=== PATIENT | female | born 1970 | race Hispanic/Latino ===

== ENCOUNTER 2017-09-21 09:01 | Emergency (ER) | payer OTHER | END 2017-09-21 09:53 | disposition home or self-care (01) | LOC: EDH 09:01 | DX: J06.9 Acute upper respiratory infection, unspecified (principal); E11.9 Type 2 diabetes mellitus without complications; E78.5 Hyperlipidemia, unspecified; I10 Essential (primary) hypertension; K21.9 Gastro-esophageal reflux disease without esophagitis | CPT/HCPCS: 99281 ==

== ENCOUNTER 2018-05-22 11:30 | Emergency (ER) | payer OTHER ==
[2018-05-22 12:02] LABS: BASOPHILS % (AUTO) 0.8 % (0.0-5.0); EOSINOPHILS % (AUTO) 0.7 % (0.0-8.0); HEMATOCRIT 37.4 % (36-48); LYMPHOCYTES % (AUTO) 19.2 % (21.0-51.0); MEAN CORPUSCULAR HEMOGLOBIN 29.3 pg (27.0-33.0); MEAN CORPUSCULAR HGB CONC 33.5 g/dL (32.0-36.0); MEAN CORPUSCULAR VOLUME 87.4 fL (79-99); MONOCYTES % (AUTO) 4.3 % (3.0-13.0); NUCLEATED RED BLOOD CELLS 0.1 % (0.0-0.19); PLATELET COUNT (AUTO) 132 K/uL (130-400); RED BLOOD CELL COUNT(AUTO) 4.28 MIL/uL (4.00-5.50); WHITE BLOOD COUNT (AUTO) 8.6 K/uL (4.8-10.8)
[2018-05-22 12:07] LABS: CREATININE 0.7 mg/dL (0.5-1.5); POTASSIUM 3.9 mmol/L (3.5-5.1)
[2018-05-22 12:11] LABS: BILIRUBIN,TOTAL 0.4 mg/dL (0.2-1.0); TOTAL PROTEIN, SERUM 7.7 g/dL (6.0-8.3)
[2018-05-22 12:14] LABS: INR 0.96 (0.85-1.15); PARTIAL THROMBOPLASTIN TIME 29.6 SEC (26.3-35.5); PROTHROMBIN TIME 10.1 SEC (9.6-11.6)
[2018-05-22] MEDS ORDERED: IOHEXOL 350 MG/ML 100ML INFUS..BTL IV ONE (13:23)
== END 2018-05-22 15:00 | disposition home or self-care (01) ==
LOC: EDH 11:30
DX: F41.9 Anxiety disorder, unspecified (principal); R06.4 Hyperventilation; M19.90 Unspecified osteoarthritis, unspecified site; E78.5 Hyperlipidemia, unspecified; I10 Essential (primary) hypertension; E11.9 Type 2 diabetes mellitus without complications; Z90.49 Acquired absence of other specified parts of digestive tract; Z79.899 Other long term (current) drug therapy
CPT/HCPCS: 36415; 71045; 71275; 80053; 82550; 83880; 84484; 85025; 85378; 85610; 85730; 93005; 99285; Q9967

== ENCOUNTER 2018-08-13 15:13 | Emergency (ER) | payer OTHER ==
[2018-08-13 16:00] LABS: APPEARANCE,URINE Clear (CLEAR); BILIRUBIN,URINE Negative (NEGATIVE); COLOR,URINE Dark Yellow (YELLOW); GLUCOSE, URINE (UA) Negative (NEGATIVE); KETONES,URINE Negative (NEGATIVE); LEUKOCYTE ESTERASE ,URINE Negative (NEGATIVE); NITRATE,URINE Negative (NEGATIVE); OCCULT BLOOD,URINE Negative (NEGATIVE); PH,URINE 5.5 (5.0-8.0); PROTEIN,URINE Negative (NEGATIVE); UROBILINOGEN,URINE 0.2 mg/dL (0.2-1.0)
[2018-08-13 16:02] LABS: HCG,QUAL RESULT NEGATIVE (NEGATIVE)
[2018-08-13] MEDS ORDERED: KETOROLAC TROMETHAMINE 30MG/ML ONE (16:06)
[2018-08-13] MEDS ORDERED: SODIUM CHLORIDE 0.9% 1000ML 1,000 ML IV ONE (16:06)
[2018-08-13 16:17] LABS: BASOPHILS % (AUTO) 1.2 % (0.0-5.0); EOSINOPHILS % (AUTO) 0.6 % (0.0-8.0); HEMATOCRIT 39.8 % (36-48); LYMPHOCYTES % (AUTO) 22.6 % (21.0-51.0); MEAN CORPUSCULAR HEMOGLOBIN 28.8 pg (27.0-33.0); MEAN CORPUSCULAR HGB CONC 33.2 g/dL (32.0-36.0); MEAN CORPUSCULAR VOLUME 86.7 fL (79-99); MONOCYTES % (AUTO) 3.9 % (3.0-13.0); NEUTROPHILS % (AUTO) 71.7 % (40.0-77.0); PLATELET COUNT (AUTO) 173 K/uL (130-400); RED BLOOD CELL COUNT(AUTO) 4.59 MIL/uL (4.00-5.50); RED CELL DISTRIBUTION WIDTH 15.2 % (11.0-15.5); WHITE BLOOD COUNT (AUTO) 10.3 K/uL (4.8-10.8)
[2018-08-13 16:27] LABS: CREATININE 0.8 mg/dL (0.5-1.5); POTASSIUM 4.3 mmol/L (3.5-5.1)
[2018-08-13 16:31] LABS: ALBUMIN 3.3 g/dL (3.5-5.0); BILIRUBIN,TOTAL 0.4 mg/dL (0.2-1.0); TOTAL PROTEIN, SERUM 7.8 g/dL (6.0-8.3)
[2018-08-13] MEDS ORDERED: MORPHINE SULFATE 4 MG/1ML SYG ONE (19:07)
[2018-08-13] MEDS ORDERED: ONDANSETRON HCL 4 MG/2 ML VIAL ONE (19:07)
== END 2018-08-13 20:47 | disposition home or self-care (01) ==
LOC: EDH 15:13
DX: N83.209 Unspecified ovarian cyst, unspecified side (principal); R10.2 Pelvic and perineal pain; E11.9 Type 2 diabetes mellitus without complications; K21.9 Gastro-esophageal reflux disease without esophagitis; E78.5 Hyperlipidemia, unspecified; I10 Essential (primary) hypertension
CPT/HCPCS: 36415; 74177; 76856; 80053; 81003; 81025; 85025; 96374; 96375; 99284; J1885; J2270; J2405; J7030

== ENCOUNTER 2019-03-02 13:28 | Emergency (ER) | payer OTHER ==
[2019-03-02 14:14] LABS: BASOPHILS % (AUTO) 0.7 % (0.0-5.0); HEMATOCRIT 35.9 % (36-48); LYMPHOCYTES % (AUTO) 25.1 % (21.0-51.0); MEAN CORPUSCULAR HEMOGLOBIN 28.9 pg (27.0-33.0); MEAN CORPUSCULAR HGB CONC 33.4 g/dL (32.0-36.0); MEAN CORPUSCULAR VOLUME 86.5 fL (79-99); MONOCYTES % (AUTO) 4.8 % (3.0-13.0); NEUTROPHILS % (AUTO) 68.4 % (40.0-77.0); PLATELET COUNT (AUTO) 121 K/uL (130-400); RED BLOOD CELL COUNT(AUTO) 4.15 MIL/uL (4.00-5.50); RED CELL DISTRIBUTION WIDTH 15.1 % (11.0-15.5); WHITE BLOOD COUNT (AUTO) 8.3 K/uL (4.8-10.8)
[2019-03-02 14:25] LABS: APPEARANCE,URINE Clear (CLEAR); BILIRUBIN,URINE Negative (NEGATIVE); COLOR,URINE Dark Yellow (YELLOW); GLUCOSE, URINE (UA) Negative (NEGATIVE); KETONES,URINE Negative (NEGATIVE); LEUKOCYTE ESTERASE ,URINE Negative (NEGATIVE); NITRATE,URINE Negative (NEGATIVE); OCCULT BLOOD,URINE Negative (NEGATIVE); PH,URINE 5.5 (5.0-8.0); PROTEIN,URINE Negative (NEGATIVE); UROBILINOGEN,URINE 0.2 mg/dL (0.2-1.0)
[2019-03-02 14:29] LABS: CREATININE 0.8 mg/dL (0.5-1.5); POTASSIUM 3.8 mmol/L (3.5-5.1)
[2019-03-02 14:35] LABS: ALBUMIN 3.3 g/dL (3.5-5.0); BILIRUBIN,DIRECT 0.1 mg/dL (0.0-0.3); BILIRUBIN,TOTAL 0.4 mg/dL (0.2-1.0); TOTAL PROTEIN, SERUM 7.5 g/dL (6.0-8.3)
[2019-03-02] MEDS ORDERED: KETOROLAC TROMETHAMINE 60 MG/2 ML VIAL ONE (15:23)
[2019-03-02] MEDS ORDERED: SODIUM CHLORIDE 0.9% 1000ML 1,000 ML IV ONE (16:09)
== END 2019-03-02 18:20 | disposition home or self-care (01) ==
LOC: EDH 13:28
DX: M54.41 Lumbago with sciatica, right side (principal); R10.31 Right lower quadrant pain; E66.3 Overweight; E11.9 Type 2 diabetes mellitus without complications; E78.5 Hyperlipidemia, unspecified; I10 Essential (primary) hypertension; K21.9 Gastro-esophageal reflux disease without esophagitis; Z68.44 Body mass index [BMI] 60.0-69.9, adult; Z90.49 Acquired absence of other specified parts of digestive tract; Z91.040 Latex allergy status
CPT/HCPCS: 36415; 74021; 76770; 76856; 80048; 80076; 81003; 82550; 83690; 84484; 85025; 93005; 96374; 99285; J1885; J7030

== ENCOUNTER 2020-08-27 19:25 | Observation (INO) | payer OTHER ==
[~2020-08-27] VITALS: Ht 165.1 cm; Wt 127.5 kg
[2020-08-27 20:03] LABS: BASOPHILS % (AUTO) 0.3 % (0.0-5.0); EOSINOPHILS % (AUTO) 0.3 % (0.0-8.0); HEMATOCRIT 40.1 % (36-48); LYMPHOCYTES % (AUTO) 17.7 % (21.0-51.0); MEAN CORPUSCULAR HEMOGLOBIN 29.8 pg (27.0-33.0); MEAN CORPUSCULAR HGB CONC 32.9 g/dL (32.0-36.0); MEAN CORPUSCULAR VOLUME 90.5 fL (79-99); MONOCYTES % (AUTO) 4.1 % (3.0-13.0); NEUTROPHILS % (AUTO) 77.3 % (40.0-77.0); PLATELET COUNT (AUTO) 115 K/uL (130-400); RED BLOOD CELL COUNT(AUTO) 4.43 MIL/uL (4.00-5.50); RED CELL DISTRIBUTION WIDTH 13.7 % (11.0-15.5); WHITE BLOOD COUNT (AUTO) 6.8 K/uL (4.8-10.8)
[2020-08-27] MEDS ORDERED: ASPIRIN 325 MG TABLET ONE (20:05)
[2020-08-27] MEDS ORDERED: NITROGLYCERIN 1GM/1 INCH PACKET TD ONE (20:05)
[2020-08-27] MEDS ORDERED: LORAZEPAM 1 MG TABLET ONE (20:05)
[2020-08-27 20:10] LABS: CREATININE 0.7 mg/dL (0.5-1.5); POTASSIUM 3.6 mmol/L (3.5-5.1)
[2020-08-27 20:15] LABS: ALBUMIN 3.6 g/dL (3.5-5.0); BILIRUBIN,TOTAL 0.3 mg/dL (0.2-1.0); TOTAL PROTEIN, SERUM 7.1 g/dL (6.0-8.3)
[2020-08-27 21:10] LABS: APPEARANCE,URINE Clear (CLEAR); BILIRUBIN,URINE Negative (NEGATIVE); COLOR,URINE Yellow (YELLOW); GLUCOSE, URINE (UA) Negative (NEGATIVE); KETONES,URINE Negative (NEGATIVE); LEUKOCYTE ESTERASE ,URINE Negative (NEGATIVE); NITRATE,URINE Negative (NEGATIVE); OCCULT BLOOD,URINE Moderate (NEGATIVE); PROTEIN,URINE Negative (NEGATIVE); UROBILINOGEN,URINE 0.2 mg/dL (0.2-1.0)
[2020-08-27 21:17] LABS: BACTERIA,URINE Rare /HPF (None Seen); WBC,URINE 0-1 /HPF (0-1)
[2020-08-27 21:18] LABS: SQUAMOUS EPITHELIAL CELL,UR Rare /HPF (0-2)
[2020-08-27] MEDS ORDERED: GLUCAGON 1MG KIT 1 MG ML IM PRN (21:30)
[2020-08-27] MEDS ORDERED: ONDANSETRON HCL 4 MG/2 ML VIAL IV PRN (21:30)
[2020-08-27] MEDS ORDERED: LACTULOSE 20 GM/30 ML UDCUP PO PRN (21:30)
[2020-08-27] MEDS ORDERED: DEXTROSE 50%-WATER 50 ML DISP.SYRIN IV PRN (21:30)
[2020-08-27] MEDS ORDERED: MECLIZINE HCL 25 MG TABLET PO PRN (21:30)
[2020-08-27] MEDS ORDERED: ACETAMINOPHEN 325 MG TAB PO PRN (21:30)
[2020-08-27 21:42] LABS: HEMOGLOBIN A1C 5.3 % (4.0-6.0)
[2020-08-27 21:50] LABS: THYROID STIMULATING HORMONE 0.95 uIU/mL (0.36-3.74)
[2020-08-28 03:55] VITALS: BP 148/77
[2020-08-28] MEDS ORDERED: FISH1CAP63 PO (04:37)
[2020-08-28] MEDS ORDERED: PREN1TAB80 PO (04:37)
[2020-08-28] MEDS ORDERED: [UNRECOGNIZED DRUG - CODE] PO (04:37)
[2020-08-28] MEDS ORDERED: OMEP20TA25 PO (04:37)
[2020-08-28] MEDS ORDERED: ZINC50TA64 PO (04:37)
[2020-08-28] MEDS ORDERED: GABA-533 PO (04:37)
[2020-08-28] MEDS ORDERED: LISI1TAB32 PO (04:37)
[2020-08-28] MEDS ORDERED: ISOS30TA6 PO (04:38)
[2020-08-28] MEDS ORDERED: FERR325T22 PO (04:38)
[2020-08-28] MEDS ORDERED: ASCO100031 PO (04:38)
[2020-08-28] MEDS ORDERED: ALPR0.5T8 PO (04:38)
[2020-08-28] MEDS ORDERED: VITA1CAP20 PO (04:38)
[2020-08-28] MEDS ORDERED: VITAD50000 PO (04:38)
[2020-08-28] MEDS ORDERED: FURO20TA4 PO (04:38)
[2020-08-28] MEDS ORDERED: MONT10TA21 PO (04:38)
[2020-08-28] MEDS ORDERED: FLUT16H NASAL (04:38)
[2020-08-28] MEDS ORDERED: DICL2100G TP (04:38)
[2020-08-28] MEDS ORDERED: PRAV80TA21 PO (04:38)
[2020-08-28] MEDS ORDERED: FEXO-59 PO (04:38)
[2020-08-28] MEDS: ACETAMINOPHEN 325 MG TAB PO PRN ×2 (04:42→13:09)
[2020-08-28] MEDS: INSULIN HUMULIN R 100 UNIT/ML 3ML SQ SCH ×3 (05:16→16:30)
[2020-08-28 05:21] LABS: BASOPHILS % (AUTO) 0.5 % (0.0-5.0); EOSINOPHILS % (AUTO) 0.6 % (0.0-8.0); LYMPHOCYTES % (AUTO) 37.1 % (21.0-51.0); MEAN CORPUSCULAR HEMOGLOBIN 29.6 pg (27.0-33.0); MEAN CORPUSCULAR HGB CONC 32.7 g/dL (32.0-36.0); MEAN CORPUSCULAR VOLUME 90.7 fL (79-99); MONOCYTES % (AUTO) 5.2 % (3.0-13.0); NEUTROPHILS % (AUTO) 56.4 % (40.0-77.0); PLATELET COUNT (AUTO) 118 K/uL (130-400); RED BLOOD CELL COUNT(AUTO) 4.52 MIL/uL (4.00-5.50); RED CELL DISTRIBUTION WIDTH 14.1 % (11.0-15.5); WHITE BLOOD COUNT (AUTO) 6.6 K/uL (4.8-10.8)
[2020-08-28 05:40] LABS: CREATININE 0.6 mg/dL (0.5-1.5); POTASSIUM 3.6 mmol/L (3.5-5.1)
[2020-08-28 08:17] VITALS: BP 123/62
[2020-08-28] MEDS ORDERED: METOPROLOL TARTRATE 25 MG TAB PO SCH (09:00)
[2020-08-28] MEDS ORDERED: ASPIRIN 325 MG TABLET PO SCH (09:00)
[2020-08-28] MEDS ORDERED: FAMOTIDINE 20MG TAB 20 MG TAB PO SCH (09:00)
[2020-08-28] MEDS ORDERED: ISOSORBIDE MONO 30MG TAB SR PO SCH (11:31)
[2020-08-28] MEDS ORDERED: GABAPENTIN 300 MG CAPSULE PO SCH (11:32)
[2020-08-28] MEDS ORDERED: HYDROCHLOROTHIAZIDE PO SCH (11:37)
[2020-08-28] MEDS ORDERED: LISINOPRIL PO SCH (11:37)
[2020-08-28 11:44] VITALS: BP 123/60
[2020-08-28 16:32] VITALS: BP 100/59
[2020-08-28] MEDS ORDERED: PANTOPRAZOLE SODIUM 40 MG TABLET.DR PO SCH (21:00)
[2020-08-28] MEDS ORDERED: ATORVASTATIN CALCIUM 20 MG TABLET PO SCH (21:00)
[2020-08-28] MEDS ORDERED: GABAPENTIN 100 MG CAPSULE PO SCH (21:00)
== END 2020-08-28 18:50 | disposition home or self-care (01) ==
LOC: EDH 19:25 → EDHIP 21:20 → 3DH 08-28 03:08
PROVIDERS: ADMIT Internal Medicine; ATTEND Internal Medicine
DX: R07.89 Other chest pain (principal); I10 Essential (primary) hypertension; E78.5 Hyperlipidemia, unspecified; E11.9 Type 2 diabetes mellitus without complications; I25.2 Old myocardial infarction; K21.9 Gastro-esophageal reflux disease without esophagitis; F41.9 Anxiety disorder, unspecified; E66.9 Obesity, unspecified; Z90.49 Acquired absence of other specified parts of digestive tract; Z79.899 Other long term (current) drug therapy; Z91.040 Latex allergy status; Z91.048 Other nonmedicinal substance allergy status; Z68.42 Body mass index [BMI] 45.0-49.9, adult
CPT/HCPCS: 36415 ×2; 71045; 80048; 80053; 80061; 81001; 82948 ×3; 83036; 84443; 84484 ×3; 85025 ×2; 93005 ×3; 99285; G0378 ×22

== ENCOUNTER 2024-11-15 17:56 | Emergency (ER) | payer BC, OTHER ==
[~2024-11-15] VITALS: Ht 165.1 cm; Wt 167.8 kg
[~2024-11-15 17:56] MED LIST: ALPR0.5T8 PO; ASCO100031 PO; DICL2100G TP; FERR325T22 PO; FEXO-263 PO; FISH1CAP63 PO; FLUT16H NASAL; FURO20TA4 PO; GABA-534 PO; ISOS30TA92 PO; LISI1TAB49 PO; MONT-47 PO; OMEP20TA20 PO; PRAV80TA21 PO; PREN1TAB80 PO; VITA1CAP20 PO; VITAD50000 PO; ZINC50TA64 PO; [UNRECOGNIZED DRUG - CODE] PO
--- NOTE | 2024-11-15 18:33 | ERN ---
General Chief Complaint: Other Problems Stated Complaint: CP, SOB Time Seen by MD: 18:03 Source: patient History of Present Illness Initial Comments PATIENT IS A 54-YEAR-OLD FEMALE COMING IN TO BE EVALUATED FOR SHORTNESS OF BREATH AND CHEST PAIN. PATIENT STATES HE HAS A HISTORY OF TX IN THE PAST IN HIS COMING IN DUE TO CHEST PRESSURE. SHE STATES THAT THE BEGAN TWO DAYS AGO AND IT WAS PROGRESSIVELY GETTING WORSE. NO FEVER OR CHILLS. Allergies: Coded Allergies: Latex, Natural Rubber (Unverified Allergy, Unknown, 03/02/19) Home Meds Reported Medications Diclofenac Sodium (Voltaren 1% Gel [2 gm/Dose]) 1 Appl/2 Gm Gel, 1 APPL TP BID PRN for PAIN LEVEL 5 TO 10, GEL 08/28/20 Fluticasone Propionate (Flonase Nasal [place]) 50 Mcg/[place], 50 MCG NASAL HS, SPRAY 08/28/20 Furosemide (Furosemide) 20 Mg Tablet, 20 MG PO DAILY PRN for OTHER [SEE ORDER COMMENTS], TAB 08/28/20 Alprazolam (Alprazolam) 0.5 Mg Tablet, 0.5 MG PO HS PRN for ANXIETY/AGITATION, TAB 08/28/20 Cholecalciferol (Vitamin D3) 50,000 Units Cap, 97686 UNITS PO QWEEK, CAP 08/28/20 Fexofenadine HCl (Fexofenadine HCl) 180 Mg Tablet, 180 MG PO HS, TAB 20 Montelukast Sodium (Singulair) 10 Mg Tablet, 10 MG PO HS, TAB 08/28/20 Pravastatin Sodium (Pravastatin Sodium) 80 Mg Tablet, 80 MG PO HS, TAB 20 Vitamin B Complex (Super B-50 Complex) 1 Each Capsule, 1 EACH PO DAILY, CAP 08/28/20 Isosorbide Mononitrate (Isosorbide Mononitrate ER) 30 Mg Tab.er.24h, 30 MG PO DAILY, TAB 08/28/20 Ascorbic Acid (Vitamin C) 1,000 Mg Tablet, 1000 MG PO DAILY, TAB 20 Ferrous Sulfate (Ferrous Sulfate) 325 Mg Tablet, 325 MG PO DAILY, TAB 20 Glucosamine HCl/Chondroitin Rashid (Endur-Flex Sr Tablet) 1 Each Tablet.er, 1 EACH PO BID, TAB 08/28/20 Zinc Amino Acid Chelate (Zinc) 50 Mg Tablet, 50 MG PO DAILY, TAB 08/28/20 Vits W-Ca,Fe,FA(<1Mg) ( Vitamins) 1 Each Tablet, 1 EACH PO DAILY, TAB 08/28/20 Gabapentin (Gabapentin) 400 Mg Capsule, 400 MG PO BID, CAP 08/28/20 Fish Oil/Dha/Epa (Fish Oil 1,200 mg Fish Oil) 1 Each Capsule, 1 EACH PO DAILY, CAP 08/28/20 Omeprazole (Omeprazole) 20 Mg Tablet.dr, 20 MG PO BID, TAB 08/28/20 Lisinopril/Hydrochlorothiazide (Lisinopril-Hctz 10-12.5 mg Tab) 1 Each Tablet, 0.5 EACH PO DAILY, TAB 08/28/20 ROS Dictation CONSTITUTIONAL: NO CHILLS, NO FEVER, NO WEAKNESS, NO DIAPHORESIS, NO MALAISE. HEAD/FACE: NO SIGNS OF TRAUMA. EENT: NO EYE PAIN, NO BLURRED VISION, NO TEARING, NO DOUBLE VISION, NO EAR PAIN, NO EAR DISCHARGE, NO NOSE PAIN, NO NASAL CONGESTION, NO THROAT PAIN, NO THROAT SWELLING, NO MOUTH PAIN. RESPIRATORY: NO COUGH, NO ORTHOPNEA, SOB, NO STRIDOR, NO WHEEZING. CARDIOVASCULAR: CHEST PAIN, NO EDEMA, NO PALPITATIONS, NO SYNCOPE. GASTROINTESTINAL/ABDOMINAL: NO ABDOMINAL PAIN, NO CONSTIPATION, NO DIARRHEA, NO NAUSEA, NO VOMITING. GENITOURINARY: NO ABNORMAL DISCHARGE, NO DYSURIA, NO FREQUENT URINATION, NO HEMATURIA. NO COMPLAINTS OF PAIN IN THE GENITALS. MUSCULOSKELETAL: NO BACK PAIN, NO GOUT, NO JOINT PAIN, NO JOINT SWELLING, NO MUSCLE PAIN, NO MUSCLE STIFFNESS, NO NECK PAIN. INTEGUMENTARY: NO CHANGE IN COLOR, NO CHANGE IN HAIR/NAILS, NO DRYNESS, NO LESION, NO LUMPS, NO RASH. NEUROLOGICAL/PSYCH: NO ANXIETY, NOT DEPRESSED, NO EMOTIONAL PROBLEM, NO HEADACHE, NO NUMBNESS, NO PRE-EXISTING DEFICIT, NO HISTORY OF SEIZURES, NO TREMORS, NO WEAKNESS. HEMATOLOGIC/LYMPHATIC: NOT ANEMIC, NO HISTORY OF BLOOD CLOTS, NO APPARENT BLEEDING, NO BRUISING, GLANDS NOT SWOLLEN. ALL SYSTEMS NEGATIVE, EXCEPT NOTED. Physical Exam Physical Exam Dictation VITAL SIGNS: REVIEWED. GENERAL APPEARANCE: ALERT, ORIENTED X3, NO ACUTE DISTRESS, OBESE. HEAD AND FACE: NON-TRAUMATIC. EYES: PERRL, PINK CONJUNCTIVAS, EYELID NO TRAUMA, ANTERIOR CHAMBER CLEAR. EARS: PINNAS INTACT AND NO SIGNS OF TRAUMA OR ERYTHEMA. EAR CANALS CLEAR AND NO DISCHARGE. TMS NO ERYTHEMA. NOSE: NO DISCHARGE, NO BLEEDING. OROPHARYNX: MOUTH NORMAL, TEETH NO CARIES, TONGUE PINK. PHARYNX CLEAR, NO ERYTHEMA. TONSILS NO EXUDATES, NO ABSCESSES NOTED. MUCOUS MEMBRANE MOIST. NECK: SUPPLE, NON-TENDER, NO THYROMEGALY, NO MASSES, NO JVD, NO BRUITS. BREAST: DEFERRED. CHEST: NO TENDERNESS, NO CREPITUS, NO PARADOXICAL MOVEMENT, NO RETRACTIONS. LUNGS: CLEAR, WELL-VENTILATED, SYMMETRIC, NO RALES, NO WHEEZING, NO RHONCHI, NO STRIDOR, GOOD BREATH SOUNDS BILATERALLY. HEART: REGULAR RATE, REGULAR RHYTHM, NO MURMUR, NO GALLOPS. VASCULAR: NO PERIPHERAL EDEMA. ABDOMEN: SOFT, POSITIVE BOWEL SOUNDS, NONDISTENDED, NO GUARDING, NONTENDER, NO REBOUND, NO MASSES NO HEPATOMEGALY, NO SPLENOMEGALY, NO STAPLETON'S SIGN, NO HERNIAS. RECTAL: DEFERRED. GENITAL: DEFERRED. NEUROLOGICAL: NORMAL SPEECH, GROSS MOTOR FUNCTION INTACT, GROSS SENSORY FUNCTION INTACT. MUSCULOSKELETAL: NECK NONTENDER, FULL RANGE OF MOTION, BACK NONTENDER, FULL RANGE OF MOTION. EXTREMITIES: NONTENDER, FULL RANGE OF MOTION. SKIN: COLOR PINK, DRY, NO TURGOR, NO RASH, NO LACERATIONS, NO ABRASIONS, NO CONTUSIONS. LYMPHATICS: DEFERRED. Results Laboratory and Microbiology Lab and Micro Result Laboratory Tests Test 11/15/24 19:20 White Blood Count 7.0 K/uL (4.8-10.8) Red Blood Count 4.31 MIL/uL (4.00-5.50) Hemoglobin 12.8 g/dL (12.0-16.0) Hematocrit 39.8 % (36-48) Mean Corpuscular Volume 92.3 fL (79-99) Mean Corpuscular Hemoglobin 29.7 pg (27.0-33.0) Mean Corpuscular Hemoglobin Concent 32.2 g/dL (32.0-36.0) Red Cell Distribution Width 14.4 % (11.0-15.5) Platelet Count 126 K/uL (130-400) L Mean Platelet Volume 12.1 fL (7.5-10.5) H Immature Granulocyte % (Auto) 1.0 % (0-1) Neutrophils (%) (Auto) 70.9 % (40.0-77.0) Lymphocytes (%) (Auto) 21.9 % (21.0-51.0) Monocytes (%) (Auto) 5.3 % (3.0-13.0) Eosinophils (%) (Auto) 0.6 % (0.0-8.0) Basophils (%) (Auto) 0.3 % (0.0-5.0) Neutrophils # (Auto) 5.0 K/uL (1.8-7.7) Lymphocytes # (Auto) 1.5 K/uL (1.0-4.8) Monocytes # (Auto) 0.4 K/uL (0.1-1.0) Eosinophils # (Auto) 0.04 K/uL (0.00-0.70) Basophils # (Auto) 0.02 K/uL (0.00-0.20) Absolute Immature Granulocyte (auto 0.07 K/uL (0-1) Nucleated Red Blood Cells 0.0 % (0.0-0.19) Prothrombin Time 10.4 SEC (9.6-11.6) Prothromb Time International Ratio 0.98 (0.85-1.15) Activated Partial Thromboplast Time 27.4 SEC (26.3-35.5) Sodium Level 136 mmol/L (136-145) Potassium Level 4.1 mmol/L (3.5-5.1) Chloride Level 100 mmol/L (101-111) L Carbon Dioxide Level 33 mmol/L (21-32) H Blood Urea Nitrogen 11 mg/dL (7-18) Creatinine 0.6 mg/dL (0.5-1.0) Glomerular Filtration Rate Calc 108 mL/min (>90) Random Glucose 119 mg/dL (70-105) H Total Calcium 8.8 mg/dL (8.5-10.1) Magnesium Level 1.90 mg/dL (1.80-2.40) Total Creatine Kinase 44 U/L (21-232) Troponin I High Sensitivity < 4.0 ng/L (4-50) L B-Type Natriuretic Peptide 29 pg/mL (0-100) Labs Reviewed?: Yes EKG/XRAY/US/CT/MRI EKG Comment 11/15/2024 TIME 6:38 P.M. VENTRICULAR RATE 103 SINUS TACHYCARDIA NM [address] WAVE ELEVATION OR DEPRESSION MDM MDM: Differential diagnosis: Vasovagal symptoms, dehydration, cardiac etiology, infectious process. Rationale: Tests considered and ordered secondary to shared decision making include: Previous outside records reviewed: Old ER visits. Risk of complication and/or morbidity or mortality of patient management: None Medications-Per medication reconciliation Need for hospitalization: Patient does not meet criteria for hospitalization. Need for emergency major/minor surgery: No There are no social concerns with this patient. Prescription drug management Prescriptions will include symptomatic care Patient's prior external medical records from other ER visits were reviewed by me as indicated. Prior testing and results from previous visits were reviewed. Prior tests were taken into account with medical decision making and resource utilization, independent historian/historians were used to obtain complete medical history. I independently interpreted the test that were performed, results were reviewed by me and considered findings on radiology if ordered. Medical management and examination interpretation discussions were had by me with other qualified healthcare professionals as indicated for the patient's care. ED Course Orders Procedure Category Date Status Time Cbc With Differential LAB 11/15/24 Complete 18:29 Prothrombin Time With LAB 11/15/24 Complete INR 18:29 B-Type Natriuretic LAB 11/15/24 Complete Peptide 18:29 Chest 1vw RAD 11/15/24 Taken 18:29 12 Lead Ekg Tracing- EKG 11/15/24 Complete Technical 18:29 Magnesium LAB 11/15/24 Complete 18:29 Urinalysis Profile LAB 11/15/24 Logged 18:29 Partial LAB 11/15/24 Complete Thromboplastin Time 18:29 Basic Metabolic Panel LAB 11/15/24 Complete 18:29 Cardiac Panel LAB 11/15/24 Complete 18:29 Vital Signs Date Time Temp Pulse Resp B/P (MAP) Pulse Ox O2 Delivery O2 Flow Rate FiO2 11/15/24 18:44 99.0 105 20 176/88 98 7:15 p.m. patient was signed out to me by the morning team. This is a 54-year-old extremely obese female who presented to the emergency room with complaints of an episode of flushing and feeling faint with palpitations that started around 4:30 p.m.. 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 And she ate her late lunch between 230 and 330 and by about 4:00 a.m. she started feeling flushed and warm and had transient discomfort in the chest with feeling faint. Her sister drove her to the ER for evaluation symptoms resolved quickly. No syncope no ongoing shortness of breath or chest pain. No nausea vomitings diarrhea. She has been trying to lose weight . Temperature 99 pulse 105 respirations 20 blood pressure 176/88 with a pulse oximetry of 98% on room air Her chronic medical problems include diabetes mellitus, hypertension, hypercholesterolemia and GERD Labs reviewed CBC is with a normal limits BNP 7 is normal blood sugar is 119. Troponins are negative BNP is negative chest x-ray is unremarkable for any focal infiltrates or pneumothorax. I had a long discussion with the patient about possible differential diagnoses and the presentation is consistent with a vasovagal symptoms The other possibility could be also symptoms related to the side effects of her GLP 1 agent that she is taking to lose weight. She stated that she was feeling really good and does not need to go through any further workup but she will follow up with her primary care physician in [facility]. DX & DISP Disposition: Discharge Departure Impression: Primary Impression: Vasovagal symptom Condition: Stable Additional Instructions: Patient and the caregiver have been informed of all the diagnostic tests and the imaging conducted during the today's visit to the emergency room and has verbalized understanding of the results I have personally reviewed and interpreted all diagnostic exams performed here in the ER today as well as the vital signs documented by the nursing staff. The patient is now being discharged to home and should follow up with the primary care physician or the specialist as directed by the ER staff. Follow-up with primary care provider in 1 to 2 days. Take medications as directed here in the emergency room. Okay to continue home medications unless otherwise discussed during your visit in the emergency room today. Return to your nearest emergency room if symptoms worsen or if there is no improvement. Call 911 if you need immediate assistance. Take Tylenol or Motrin [id number] as needed and if no contraindications are present. Increase oral hydration. A wound culture or urine culture was ordered here in the emergency room department please follow-up with primary care provider and advise them to get repeat ports from our facility. If you had any Derick wrap/splints that were applied here, please do not remove them until you see your primary care or specialty. Referrals: CHLOÉ MENDEZ (PCP) ALEKSANDAR ELIZONDO MD Nov 15, 2024 18:32 LISBETH LEE MD Nov 15, 2024 21:13
--- NOTE | 2024-11-15 18:41 | EKG ---
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
[2024-11-15 19:29] LABS: BASOPHILS # (AUTO) 0.02 K/uL (0.00-0.20); BASOPHILS % (AUTO) 0.3 % (0.0-5.0); EOSINOPHILS # (AUTO) 0.04 K/uL (0.00-0.70); EOSINOPHILS % (AUTO) 0.6 % (0.0-8.0); HEMATOCRIT 39.8 % (36-48); IMMATURE GRANULOCYTE ABSOLUTE 0.07 K/uL (0-1); LYMPHOCYTES # (AUTO) 1.5 K/uL (1.0-4.8); LYMPHOCYTES % (AUTO) 21.9 % (21.0-51.0); MEAN CORPUSCULAR HEMOGLOBIN 29.7 pg (27.0-33.0); MEAN CORPUSCULAR HGB CONC 32.2 g/dL (32.0-36.0); MEAN CORPUSCULAR VOLUME 92.3 fL (79-99); MONOCYTES # (AUTO) 0.4 K/uL (0.1-1.0); MONOCYTES % (AUTO) 5.3 % (3.0-13.0); NEUTROPHILS % (AUTO) 70.9 % (40.0-77.0); PLATELET COUNT (AUTO) 126 K/uL (130-400); RED BLOOD CELL COUNT(AUTO) 4.31 MIL/uL (4.00-5.50); RED CELL DISTRIBUTION WIDTH 14.4 % (11.0-15.5)
[2024-11-15 19:38] LABS: CARBON DIOXIDE 33 mmol/L (21-32); CHLORIDE 100 mmol/L (101-111); CREATININE 0.6 mg/dL (0.5-1.0); GLOMERULAR FILTR. RATE CALC 108 mL/min (>90); GLUCOSE,RANDOM 119 mg/dL (70-105); POTASSIUM 4.1 mmol/L (3.5-5.1); SODIUM SERUM 136 mmol/L (136-145); UREA NITROGEN, BLOOD 11 mg/dL (7-18)
[2024-11-15 19:46] LABS: CREATINE KINASE, TOTAL 44 U/L (21-232)
[2024-11-15 19:47] LABS: INR 0.98 (0.85-1.15); PROTHROMBIN TIME 10.4 SEC (9.6-11.6)
[2024-11-15 19:48] LABS: PARTIAL THROMBOPLASTIN TIME 27.4 SEC (26.3-35.5)
[2024-11-15 19:53] LABS: B-TYPE NATRIURETIC PEPTIDE 29 pg/mL (0-100)
[2024-11-15 22:42] VITALS: BP 161/88; PULSE 95; RESP 16; TEMP 98.8; O2SAT 98
--- NOTE | 2024-11-18 00:16 | HMCIMG ---
CHEST 1VW HISTORY: Chest pain COMPARISON: 08/27/2020 FINDINGS: A frontal projection of the chest was obtained. Prominent interstitial markings are seen with possible superimposed infiltrates. The heart is normal in size. Mild degenerative changes are seen. No evidence of aortic calcification is seen. IMPRESSION: 1. Prominent interstitial markings are seen with possible superimposed infiltrates.
== END 2024-11-15 22:49 | disposition home or self-care (01) ==
LOC: EDH 17:56
DX: R55 Syncope and collapse (principal); Z79.899 Other long term (current) drug therapy; Z91.040 Latex allergy status
CPT/HCPCS: 36415; 71045; 80048; 82550; 83735; 83880; 84484; 85025; 85610; 85730; 93005; 99284